=== PATIENT | female | born 1995 | race Caucasian/White ===

== ENCOUNTER 2017-05-22 17:46 | Emergency (ER) | payer OTHER, SELFPAY ==
[2017-05-22 17:48] VITALS: BP 133/75; PULSE 99; RESP 16; TEMP 36.9; O2SAT 99; BMI 25.1
--- NOTE | 2017-05-22 18:09 | EKG12_ITS ---
Test Reason : CP Blood Pressure : / mmHG Vent. Rate : 078 BPM Atrial Rate : 078 BPM P-R Int : 112 ms QRS Dur : 076 ms QT Int : 380 ms P-R-T Axes : 023 039 046 degrees QTc Int : 433 ms Sinus rhythm with sinus arrhythmia with occasional Premature ventricular complexes Otherwise normal ECG Confirmed by RAMON MESA, MEGAN ([id number]), dictionary editor NORMA JAY ([id number] on 05/26/2017 8:37:38 AM Referred By: DEISY Confirmed By:MEGAN NAVARRO MD
--- NOTE | 2017-05-22 18:16 | ED.VISSUMM ---
- ER Visit Summary Date of Service: 05/22/17 Chief Complaint: Chest tightness and palpitations History of Present Illness: The patient is a 21 F who presents with chest tightness and palpitations that is intermittent for the past 1-1/2 weeks. She was started on Adderall by her psychiatrist to treat ADHD 2 weeks ago. She also is taking 7 different supplements because she is vegetarian. She denies fever, chills night sweats. Denies weight gain or weight loss. She denies any ocular, visual or auditory symptoms. She denies shortness of breath. She denies cough. She denies history of PE DVT or history for VTE. She denies leg pain, swelling discoloration. She has no other complaints please read written note. Physical Examination: Vital signs unremarkable. EKG that was performed per nurse protocol reveals sinus rhythm with PVCs. Rhythm strip reveals a run of trigeminy as well as frequent ventricular premature beats. Head is atraumatic normocephalic. Pupils are equal round reactive. Extraocular muscles are intact. TMs are pearly white with landmarks noted. Nares patent with no drainage. Posterior pharynx without erythema or exudate. Uvula is midline. There is no dysphonia or dysphasia. Trachea is midline. There is no stridor with auscultation of the neck. Heart is irregular secondary to premature ventricular beats. Lungs are clear to auscultation. Abdomen is soft and nontender. Bowel sounds are present normal. There is no asymmetry, swelling, discoloration, leg vein distention, palpable cords or tenderness along the distribution of the deep venous system. Test Results: BMP is unremarkable. Emergency Department Course and Treatment: EKG was obtained per nurse protocol. Based on the rhythm strip that was handed to me by the respiratory therapist I panel was obtained. Electro panel was obtained also because she is taking mag citrate and other herbal supplements. Treatment Plan: Discontinue herbal supplements and Adderall Disposition: To home with appropriate home-going instructions and follow-up with psychiatrist to prescribe the Adderall Impression: Chest discomfort with frequent premature ventricular beats secondary to adverse drug reaction This note was generated with [employer] software. It may contain incorrect words, spelling, and punctuation that were not noted in review of the chart prior to signing ED Disposition - Plan for ED Patient: Disposition: Home or Assisted Living Chief Complaint: Chest Pain Instructions: Premature Ventricular Contractions, ED Drug React Adverse Other Referrals: [facility] Doctor,Out of [Primary Care Provider] - [facility] [GROUP OF PHYSICIANS] - Additional Instructions: We will need to follow-up with the psychiatrist to prescribe to the Adderall. My recommendation is to discontinue the Adderall and all of your herbal supplements
[2017-05-22 18:24] VITALS: PULSE 72; RESP 13; O2SAT 100
[2017-05-22 19:35] LABS: Anion Gap 7 (5-15); BUN 11 mg/dL (7-18); BUN/Creat Ratio 16.8 RATIO (10-20); Calcium,Total 8.4 mg/dL (8.5-10.1); Chloride 108 mmol/L (98-107); Creatinine, Serum 0.66 mg/dL (0.55-1.02); EST Glomerular Filtration Rate 121 mL/min (>60); Est Glom Filt Rate - Afr Amer 147 mL/min (>60); Estimated Creatinine Clearance 97.66 ml/min; Glucose 94 mg/dL (74-106); Potassium 3.7 mmol/L (3.5-5.1); Sodium Level 140 mmol/L (136-145)
[2017-05-22 19:39] VITALS: BP 111/72; PULSE 81; RESP 14; O2SAT 98
[2017-05-22 20:00] VITALS: RESP 16
--- NOTE | 2017-05-22 20:01 | ED.RN ---
REVIEWED D/C INSTRUCTIONS, FOLLOW UP CARE, AND S/S THAT WOULD WARRANT A RETURN TO THE ED WITH PT. PT VERBALIZED AN UNDERSTANDING AND DENIES FURTHER QUESTIONS FOR THIS RN. PT SKIN P/W/D, RESP EVEN AND UNLABORED, PT A&O X 3, NO DISTRESS NOTED. PT AMBULATED OUT OF ED, GAIT STEADY.
== END 2017-05-22 20:02 | disposition home or self-care (01) ==
PROVIDERS: Emergency Provider Emergency Medicine
DX: R07.89 Other chest pain (principal); I49.3 Ventricular premature depolarization; R00.8 Other abnormalities of heart beat; T50.905A Adverse effect of unspecified drugs, medicaments and biological substances, initial encounter; Y92.9 Unspecified place or not applicable; F90.9 Attention-deficit hyperactivity disorder, unspecified type; Z79.899 Other long term (current) drug therapy
CPT/HCPCS: 36415; 80048; 93005; 99283

== ENCOUNTER → 2017-06-01 08:51 | Outpatient (CLI) | payer OTHER, SELFPAY ==
--- NOTE | 2017-06-01 08:55 | ECHOD_ITS ---
Reason For Study: CHEST PAIN Procedure This was a 2D Doppler, Color Flow transthoracic echocardiogram. Exam performed in department. Left Ventricle Normal LV size. Left ventricular systolic function is normal. The estimated ejection fraction is 60 %. Normal diastology for age. No regional wall motion abnormalities noted. Right Ventricle Normal RV size. Normal systolic function. Atria Normal left atrium. Normal right atrium. Mitral Valve Normal mitral valve. Tricuspid Valve Normal tricuspid valve. Mild tricuspid valve insufficiency. Aortic Valve Normal aortic valve. Trisinus/trileaflet aortic valve. Pulmonic Valve Normal pulmonic valve. Great Vessels Normal aortic root. The pulmonary artery is normal size. Normal inferior vena cava. Pericardium/Pleural No pericardial effusion. MMode/2D Measurements & Calculations LVIDd: 4.1 cm IVSd: 0.76 cm Ao root diam: 2.3 cm LVIDs: 2.9 cm LVPWd: 0.91 cm RVDd: 3.4 cm FS: 30.1 % LAV(MOD-bp): 38.9 ml LA A4 area: 14.8 cm2 RA A4 area: 11.9 cm2 LAV(MOD-bp) Indexed: 25.3 ml/m2 LAV(MOD-sp2): 34.3 ml LAV(MOD-sp4): 40.5 ml Doppler Measurements & Calculations MV E max herrera: 90.7 cm/sec Ao V2 max: 134.3 cm/sec LV V1 max: 112.4 cm/sec MV A max herrera: 45.4 cm/sec Ao max P.2 mmHg LV V1 max P.1 mmHg MV E/A: 2.0 TR max herrera: 217.1 cm/sec TR max P.9 mmHg Interpretation Summary Normal LV size. Left ventricular systolic function is normal. The estimated ejection fraction is 60 %. Normal diastology for age. Structurally normal valves. Ordering Physician: Matias Vegas Referring Physician: Matias Vegas Performed By: Carol Hernández, MAGALY, RVT
== END ==
LOC: CVS 08:52
PROVIDERS: Visit Provider Internal Medicine Cardiovascular Disease
DX: I25.10 Atherosclerotic heart disease of native coronary artery without angina pectoris (principal); R07.9 Chest pain, unspecified; I49.9 Cardiac arrhythmia, unspecified; R07.89 Other chest pain
CPT/HCPCS: 93306

== ENCOUNTER → 2017-06-03 11:24 | Outpatient (CLI) | payer OTHER, SELFPAY ==
--- NOTE | 2017-06-03 15:24 | STRESSREP ---
Stress Test Report Treadmill EKG report: Resting EKG: Normal sinus rhythm, normal axis, normal intervals, no evidence of previous myocardial infarction. Treadmill EKG: The patient exercised according to a Kennedy protocol for 10 minutes and 0 seconds achieving a maximum workload of 11.7 METS. Resting heart rate was initially 66 beats a minute and safia to maximum of 214 bpm which represents 107% of the maximal expected heart rate. Resting blood pressure was 100/58 and safia to maximum 140/62. Test was terminated due to the target heart rate achieved and leg discomfort. During exercise the patient's heart rate increased as expected. Patient had moderate PVCs during exercise, and frequent PVCs during recovery. Patient had subtle upsloping ST segment depression at peak exercise but did not reach criteria for ischemia. Patient had self limited ventricular bigeminy during recovery. No anginal symptoms noted. Conclusions: Normal adequate treadmill EKG. Negative for ischemia by EKG criteria. No anginal symptoms noted. Frequent PVCs and ventricular bigeminy during recovery. Appropriate blood pressure response to exercise. Average exercise capacity for age. Recommend clinical correlation or alternative mode of testing given frequent PVCs and ventricular bigeminy if felt to be clinically indicated. Patient tolerated procedure well.
== END ==
PROVIDERS: Visit Provider Internal Medicine Cardiovascular Disease
DX: I25.10 Atherosclerotic heart disease of native coronary artery without angina pectoris (principal); R07.9 Chest pain, unspecified; I49.9 Cardiac arrhythmia, unspecified; R07.89 Other chest pain
CPT/HCPCS: 93017